=== PATIENT | male | born 1970 | race Caucasian/White ===

== ENCOUNTER 2022-07-18 20:00 | Outpatient (CLI) | payer OTHER, SELFPAY | END 2022-07-18 20:01 | disposition home or self-care (01) | LOC: SLEEP 07-19 08:10 | PROVIDERS: PCP Family Medicine; Visit Provider Family Medicine | DX: R06.83 Snoring (principal); R53.83 Other fatigue; G47.33 Obstructive sleep apnea (adult) (pediatric) | CPT/HCPCS: 95810 ==

== ENCOUNTER 2022-09-21 20:00 | Outpatient (CLI) | payer OTHER, SELFPAY | END 2022-09-21 20:01 | disposition home or self-care (01) | LOC: SLEEP 09-22 04:35 | PROVIDERS: PCP Family Medicine; Visit Provider Family Medicine | DX: G47.33 Obstructive sleep apnea (adult) (pediatric) (principal) | CPT/HCPCS: 95811 ==